=== PATIENT | male | born 1960 | race Caucasian/White ===

== ENCOUNTER 2022-02-09 12:27 | Emergency (ER) | payer SELFPAY ==
[~2022-02-09] VITALS: Ht 180.3 cm; Wt 80.7 kg
[2022-02-09 12:38] VITALS: BP 146/87
--- NOTE | 2022-02-09 12:38 | NUR ---
PT AMBULATED TO ER BED 6
--- NOTE | 2022-02-09 12:40 | NUR ---
61 y/o M BIB self from home c/o right sided low and upper back pain s/p fall. Patient A&Ox4, ambulatory, states falling 3 feet from ladder and landing on a metal table to his right side. Denies LOC, head/neck pain. Patient reports 0/10 pain at rest; 10/10, dull/constant, non-radiating pain with movement. Alleviates with sitting position. Denies blurry vision, headache, dizziness. Ibuprofen at 1230. Bed locked in lowest position, side rails x 1. PMH: DM2 Meds/Allergies/Sx: Denies
--- NOTE | 2022-02-09 12:46 | NUR ---
DANIELITO Lake evaluating pt at bedside
[2022-02-09] MEDS ORDERED: ONDANSETRON 4 MG/2 ML VIAL IVP ONE (12:50)
[2022-02-09] MEDS ORDERED: MORPHINE SULFATE 4 MG/ML SYR IVP ONE (12:50)
--- NOTE | 2022-02-09 13:09 | NUR ---
Pt transported to RAD/CT via [facility].
--- NOTE | 2022-02-09 13:20 | NUR ---
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
--- NOTE | 2022-02-09 13:21 | NUR ---
Patient states no pain without movement. Reports sharp pain with movement.
[2022-02-09 14:34] VITALS: BP 120/70
--- NOTE | 2022-02-09 14:43 | NUR ---
Patient discharged with v/s stable. Written and verbal after care instructions given and explained for Lumbar Spine Fracture, Acute Back Pain, Rib Contusion, Abrasion, Wrist Pain (Adult). Patient verbalized understanding. Ambulatory with steady gait. All questions addressed prior to discharge. Advised to follow up with PMD. Copies of RAD results given to patient. Off work note given to patient.
== END 2022-02-09 13:52 | disposition home or self-care (01) ==
LOC: MED 12:27
DX: S32.009A Unspecified fracture of unspecified lumbar vertebra, initial encounter for closed fracture (principal); M25.532 Pain in left wrist; R07.81 Pleurodynia; W11.XXXA Fall on and from ladder, initial encounter; Y93.89 Activity, other specified; Y92.89 Other specified places as the place of occurrence of the external cause; Y99.8 Other external cause status
CPT/HCPCS: 71101; 72128; 72131; 73110; 96374; 96375; 99284; J2270; J2405